=== PATIENT | male | born 1990 | race African-American/Black ===

== ENCOUNTER 2019-07-26 15:46 | Emergency (ER) | payer BC, OTHER ==
[~2019-07-26] VITALS: Ht 177.8 cm; Wt 99.8 kg
[2019-07-26] MEDS ORDERED: NORFLEX100 MG PO (17:48)
[2019-07-26] MEDS ORDERED: IBUPROFEN 800800 M1 PO (17:48)
[2019-07-26 17:54] VITALS: BP 112/74
== END 2019-07-26 17:55 | disposition home or self-care (01) ==
LOC: ER 15:46
DX: S43.492A Other sprain of left shoulder joint, initial encounter (principal); F17.210 Nicotine dependence, cigarettes, uncomplicated; V89.2XXA Person injured in unspecified motor-vehicle accident, traffic, initial encounter; Y93.89 Activity, other specified; Y92.89 Other specified places as the place of occurrence of the external cause; Y99.8 Other external cause status